=== PATIENT | male | born 1990 | race Two or more races ===

== ENCOUNTER 2022-04-19 05:49 | Day surgery (SDC) | payer OTHER ==
[2022-04-19] MEDS ORDERED: PEPCID AC20 MG PO (09:18)
== END 2022-04-19 11:20 | disposition home or self-care (01) ==
LOC: AMB-ENDOS 05:49
PROVIDERS: ATTEND Surgery
DX: K29.80 Duodenitis without bleeding (principal); E66.9 Obesity, unspecified; R10.13 Epigastric pain; K44.9 Diaphragmatic hernia without obstruction or gangrene